=== PATIENT | male | born 1975 | race African-American/Black ===

== ENCOUNTER 2018-03-24 08:07 | Emergency (ER) | payer SELFPAY ==
[~2018-03-24] VITALS: Ht 180.3 cm; Wt 86.1 kg
[2018-03-24 08:52] LABS: BASOPHIL (%) 0.1 % (0-1); EOSINOPHIL (%) 0 % (0-5); HEMATOCRIT 38.5 % (38.0-50.0); HEMOGLOBIN 12.5 G/DL (12.5-16.6); IMMATURE GRANULOCYTE (%) 0.4 % (0.0-0.7); LYMPHOCYTE (%) 10.2 % (15-42); LYMPHOCYTE COUNT 1.3 K/uL (1.0-2.8); MCH 24.2 PG (29.0-34.0); MCHC 32.5 G/DL (30.0-36.0); MCV 74.5 FL (86-99); MONOCYTE COUNT 0.3 K/uL (0-0.8); NEUTROPHIL (%) 87.3 % (45-76); NEUTROPHIL COUNT 11.1 K/uL (1.8-6.4); PLATELET COUNT 237 K/uL (156-360); RBC DIS.WIDTH-CV 14.5 % (11.8-14.6); RBC DIS.WIDTH-SD 38.9 % (39-53); RED BLOOD COUNT 5.17 M/uL (4.00-5.50); WHITE BLOOD COUNT 12.7 K/uL (4.1-10.2)
[2018-03-24 08:58] LABS: ALBUMIN 4.5 g/dL (3.2-4.8); CHLORIDE 104 mEq/L (99-109); POTASSIUM 4.3 mEq/L (3.7-5.4); SODIUM 140 mEq/L (136-147)
[2018-03-24 09:01] LABS: GLUCOSE 136 mg/dL (70-99); TOTAL PROTEIN 7.1 g/dL (6.4-8.3)
[2018-03-24 09:03] LABS: TOTAL BILIRUBIN 1.3 mg/dL (0.0-1.0)
[2018-03-24 09:04] LABS: ALKALINE PHOSPHATASE 71 IU/L (3-129)
[2018-03-24 09:05] LABS: GFR ESTIMATE (CALCULATED) > 59 mL/min/ (58.99-99999)
[2018-03-24 09:06] LABS: AST (GOT) 18 IU/L (2-34); UREA NITROGEN (BUN) 17 mg/dL (9-23)
[2018-03-24 09:07] LABS: ALT (GPT) 21 IU/L (3-49)
[2018-03-24 09:08] LABS: LIPASE 84 U/L (1.0-51.0)
[2018-03-24] MEDS ORDERED: BENTYL20 MG PO (10:37)
[2018-03-24] MEDS ORDERED: PROTONIX20 MG PO (10:37)
[2018-03-24] MEDS ORDERED: ZOFRAN4 MG PO (10:37)
[2018-03-24 11:08] VITALS: BP 141/73
== END 2018-03-24 11:16 | disposition home or self-care (01) ==
LOC: EME 08:07
PROVIDERS: Emergency Medicine
DX: R10.13 Epigastric pain (principal); R11.2 Nausea with vomiting, unspecified; R74.8 Abnormal levels of other serum enzymes; I10 Essential (primary) hypertension; Z87.11 Personal history of peptic ulcer disease; F17.200 Nicotine dependence, unspecified, uncomplicated; Z88.0 Allergy status to penicillin
CPT/HCPCS: 74022; 74177; 80053; 83690; 85025; 99281; 99285; C9113; J2405; J7030